=== PATIENT | male | born 1945 | race Caucasian/White ===

== ENCOUNTER 2016-07-15 02:35 | Observation (INO) | payer OTHER ==
[2016-07-15] MEDS ORDERED: NITROGLYCERIN 0.4 MG BTL SL PRN (02:46)
[2016-07-15] MEDS ORDERED: NS 500 ML IV ONE (02:46)
--- NOTE | 2016-07-15 02:46 | CPEKG ---
Heart Rate: 110 RR Interval: 545 QRSD Interval: 108 QT Interval: 368 QTC Interval: 498 QRS [place]: 69 T Wave [place]: -19 EKG Severity - ABNORMAL ECG - EKG Impression: ATRIAL FIBRILLATION, V-RATE 72-163 EKG Impression: VENTRICULAR PREMATURE COMPLEX EKG Impression: INFERIOR INFARCT, AGE INDETERMINATE EKG Impression: BORDERLINE PROLONGED QT INTERVAL Preliminary Awaiting MD Review
[2016-07-15] MEDS ORDERED: ONDANSETRON 4 MG/2 ML VIAL IVP ONE (02:47)
--- NOTE | 2016-07-15 02:51 | EDPHY ---
H & P HPI/ROS: HPI CHIEF COMPLAINT: Chest Pain, STEMI activation by EMS in the field. HISTORY OF PRESENT ILLNESS: This patient is a very pleasant 70-year-old male, significant past medical history for coronary artery disease, hypertension, stroke right-sided deficits, presents emergency room by EMS after around 1:30 a.m. he developed chest pain left-sided woke him from sleep. He is very hard time describing this chest discomfort. States stays in his left chest. 911 was called from his private residence by his for left-sided chest discomfort. EMS arrived and evaluated the patient they felt that he may have had an ST elevation AK and thought they saw ST elevation in V2 V3. No reciprocal changes. Activated a STEMI in the field. Patient was given 2 doses of nitroglycerin EN route. Full-dose aspirin. Chest pain went from 10/10 to 3/ 10. He has had no jaw pain, numbness, tingling, nausea, vomiting, arm pain or weakness. Upon arrival here to the emergency room is brought to ER room 2. Where I immediately evaluated him saw him he had a bedside EKG that does not show ST elevation. Past Medical History: Hypertension, AFib, on Coumadin, coronary artery disease with stent, stroke with right-sided deficit specifically right upper extremity contracture, unable to blink left eye. Past Surgical History: No recent surgery, previous PEG tube Social History: Denies daily use of drugs alcohol tobacco products, at bedside. Family History: Noncontributory ROS REVIEW OF SYSTEMS: A comprehensive 10 point review of systems is otherwise negative aside from elements mentioned in the history of present illness. Exam Constitutional appears well nontoxic, triage nursing summary reviewed, vital signs reviewed, awake/alert. Eyes normal conjunctivae and sclera, EOMI, PERRLA. HENT normal inspection, atraumatic, moist mucus membranes, no epistaxis, neck supple/ no meningismus, no raccoon eyes. Respiratory clear to auscultation bilaterally, normal breath sounds, no respiratory distress, no wheezing. Cardiovascular rate normal, regular rhythm, no murmur, no edema, distal pulses normal. Gastrointestinal soft, non-tender, no rebound, no guarding, normal bowel sounds, no distension, no pulsatile mass. Genitourinary no CVA tenderness. Musculoskeletal no midline vertebral tenderness, full range of motion, no calf swelling, no tenderness of extremities, no meningismus, good pulses, neurovascularly intact. Skin pink, warm, & dry, no rash, skin atraumatic. Neurologic neuro exam is at baseline with right upper extremity contracture, unable to open left eye, awake, alert and oriented x 3, AAOx3, , motor intact, sensory intact, CN II-XII intact, normal cerebellar, normal vision, normal speech. Psychiatric normal mood/affect. Heme/Lymph/Immune no lymphadenopathy. Differential diagnosis includes but is not limited to: ACS, atypical chest pain , pneumothorax, pneumonia, pulmonary embolism, aortic dissection, congestive heart failure, tumor, musculoskeletal pain, esophageal pain, GERD, peptic ulcer disease, pancreatitis Medical Decision Making: The laboratory animal care veterinarian was initially activated for this patient however I cancel the laboratory animal care veterinarian activation and spoke with Dr. Retana with Cardiology. I do not feel that this patient is having an ST elevation AK as his EKG does not indicate that. Will proceed with further cardiac evaluation here in the emergency room. Plan for this patient IV establishment full cardiac catheterization technologist, EKG, 3rd dose of nitroglycerin to see if I can get him chest pain-free, morphine if still has chest pain. Chest x-ray. Artery receive full- dose aspirin. Troponin. Blood work. Re-evaluation: EKG interpretation by me on record in [facility] system. Impression time of EKG 2:39 a.m., this is AFib rate of 110, Q-waves noted in inferior leads. I do not appreciate ST elevation AK on this EKG. No old EKG to compare this to. 0306: I did speak with Cardiology Dr. Retana who reviewed the EKG. Does not feel that this is a STEMI. Will proceed with further cardiac evaluation here in the emergency room. 0315: Re-evaluation at this time. Patient feels better after the 3rd nitroglycerin. Full-dose aspirin was already given by EMS. Initial blood pressure was high however it is improving 150/93 at this time. ED x-ray chest one view: Cardiomegaly present. Lung jacobo clear. Calcified aortic knob. Image interpreted by myself. 0337: Troponin is negative. BNP slightly elevated. Chest x-ray shows cardiomegaly without overt failure. EKG AFib but no acute ischemia. Patient be admitted to the hospital for chest pain evaluation rule out. At this time patient resting comfortably hemodynamically stable. 0429AM: Spoke with Dr. Whitney the hospitalist service agrees to admit this patient. Updated patient and family at bedside. Chest pain-free. Need to be admitted for chest pain evaluation. In the ER troponin negative. Elevated BNP. Chest x-ray shows cardiomegaly but no failure. EKG nonischemic. Therapeutic Coumadin. Source: Patient, Family, EMS Constitutional: Initial Vital Signs Temperature (C) 36.5 C 07/15/16 02:45 Heart Rate 86 07/15/16 02:45 Respiratory Rate 22 H 07/15/16 02:45 Blood Pressure 170/117 H 07/15/16 02:45 O2 Sat (%) 93 07/15/16 02:45 O2 Delivery Mode Nasal Cannula O2 (L/minute) 2 Allergies/Adverse Reactions: No Known Allergies Allergy (Unverified 07/15/16 03:00) Home Medications: Medication Instructions Recorded Flomax 0.4 MG (*) 07/15/16 Jantoven 07/15/16 Losartan Potassium 07/15/16 Metoprolol Tartrate 07/15/16 Warfarin Sodium 07/15/16 Medical Decision Making - Data Points Laboratory Results: Laboratory Results 07/15/16 02:44 07/15/16 02:44 07/15/16 07/15/16 07/15/16 02:44 02:44 02:44 WBC 4.58 10^3/uL 10^3/uL (3.80-9.50) RBC 4.68 10^6/uL 10^6/uL (4.40-6.38) Hgb 14.8 g/dL g/dL (13.7-17.5) Hct 42.8 % % (40.0-51.0) MCV 91.5 fL fL (81.5-99.8) MCH 31.6 pg pg (27.9-34.1) MCHC 34.6 g/dL g/dL (32.4-36.7) RDW 13.2 % % (11.5-15.2) Plt Count 140 10^3/uL L 10^3/uL (150-400) MPV 9.9 fL fL (8.7-11.7) Neut % (Auto) 53.2 % % (39.3-74.2) Lymph % (Auto) 33.6 % % (15.0-45.0) [place] % (Auto) 9.4 % % (4.5-13.0) Eos % (Auto) 2.4 % % (0.6-7.6) Baso % (Auto) 0.7 % % (0.3-1.7) Nucleat RBC Rel Count 0.0 % % (0.0-0.2) Absolute Neuts (auto) 2.44 10^3/uL 10^3/uL (1.70-6.50) Absolute Lymphs (auto) 1.54 10^3/uL 10^3/uL (1.00-3.00) Absolute Monos (auto) 0.43 10^3/uL 10^3/uL (0.30-0.80) Absolute Eos (auto) 0.11 10^3/uL 10^3/uL (0.03-0.40) Absolute Basos (auto) 0.03 10^3/uL 10^3/uL (0.02-0.10) Absolute Nucleated RBC 0.00 10^3/uL 10^3/uL (0-0.01) Immature Gran % 0.7 % % (0.0-1.1) Immature Gran # 0.03 10^3/uL 10^3/uL (0.00-0.10) PT 24.6 SEC H SEC (12.0-15.0) INR 2.20 H (0.83-1.16) APTT 47.7 SEC H SEC (23.0-38.0) Sodium 137 mEq/L mEq/L (134-144) Potassium 4.4 mEq/L mEq/L (3.5-5.2) Chloride 104 mEq/L mEq/L (97-110) Carbon Dioxide 23 mEq/l mEq/l (22-31) Anion Gap 10 mEq/L mEq/L (8-16) BUN 14 mg/dL mg/dL (7-23) Creatinine 0.8 mg/dL mg/dL (0.7-1.3) Estimated GFR > 60 Glucose 88 mg/dL mg/dL (70-100) Calcium 9.3 mg/dL mg/dL (8.5-10.4) Magnesium 2.0 mg/dL mg/dL (1.6-2.3) Total Bilirubin 0.8 mg/dL mg/dL (0.1-1.4) Conjugated Bilirubin 0.4 mg/dL mg/dL (0.0-0.5) Unconjugated Bilirubin 0.4 mg/dL mg/dL (0.0-1.1) AST 37 IU/L IU/L (17-59) ALT 36 IU/L IU/L (21-72) Alkaline Phosphatase 68 IU/L IU/L (38-126) Creatine Kinase 93 IU/L IU/L (0-224) CK-MB (CK-2) Fraction 2.85 ng/mL ng/mL (0-3.19) Troponin I 0.012 ng/mL ng/mL (0-0.034) NT-Pro-B Natriuret Pep 2070 pg/mL H pg/mL (0-125) Total Protein 7.4 g/dL g/dL (6.3-8.2) Albumin 4.2 g/dL g/dL (3.5-5.0) Lipase 154.0 IU/L IU/L (23-300) Medications Given: Discontinued Medications Sodium Chloride (Ns) 500 mls @ 0 mls/hr IV ONCE ONE PRN Reason: As Directed Stop: 07/15/16 02:47 Last Admin: 07/15/16 02:57 Dose: 500 mls Morphine Sulfate (Morphine) 4 mg IVP EDNOW ONE Stop: 07/15/16 02:48 Last Admin: 07/15/16 03:41 Dose: 2 mg Nitroglycerin (Nitrostat) 0.4 mg SL Q5M PRN PRN Reason: Chest Pain Stop: 07/15/16 02:57 Last Admin: 07/15/16 02:58 Dose: 1 tab Ondansetron HCl (Zofran) 4 mg IVP EDNOW ONE Stop: 07/15/16 02:48 Last Admin: 07/15/16 03:40 Dose: 4 mg Departure - Departure Disposition: [facility] Inpatient Acute Clinical Impression: Chest pain Qualifiers: Chest pain type: unspecified Qualified Code(s): R07.9 - Chest pain, unspecified Condition: Fair Referrals: Patient,NotPresent [Unknown] - As per Instructions
[2016-07-15 03:00] LABS: % IMMATURE GRANULYOCYTES 0.7 % (0.0-1.1); ABSOLUTE IMMATURE GRANULOCYTES 0.03 10^3/uL (0.00-0.10); ADD DIFF? NO; ADD MORPH? NO; ADD SCAN? NO; ATYPICAL LYMPHOCYTE FLAG 10 (0-99); FRAGMENT RBC FLAG 0 (0-99); HEMATOCRIT 42.8 % (40.0-51.0); HEMOGLOBIN 14.8 g/dL (13.7-17.5); LEFT SHIFT FLG 0 (0-99); LIPEMIA HEMOLYSIS FLAG 90 (0-99); MEAN CELL HEMOGLOBIN 31.6 pg (27.9-34.1); MEAN CELL HEMOGLOBIN CONCENTR. 34.6 g/dL (32.4-36.7); MEAN CELL VOLUME 91.5 fL (81.5-99.8); MEAN PLATELET VOLUME 9.9 fL (8.7-11.7); PLATELET CLUMPS FLAG 0 (0-99); PLATELET COUNT 140 10^3/uL (150-400); RED BLOOD CELL COUNT 4.68 10^6/uL (4.40-6.38); RED CELL DISTRIBUTION WIDTH 13.2 % (11.5-15.2)
[2016-07-15 03:19] LABS: ALANINE AMINOTRANSFERASE 36 IU/L (21-72); ALBUMIN 4.2 g/dL (3.5-5.0); ALKALINE PHOSPHATASE 68 IU/L (38-126); ANION GAP 10 mEq/L (8-16); ASPARTATE AMINOTRANSFERASE 37 IU/L (17-59); BILIRUBIN,TOTAL 0.8 mg/dL (0.1-1.4); BILIRUBIN-CONJUGATED 0.4 mg/dL (0.0-0.5); BILIRUBIN-UNCONJUGATED 0.4 mg/dL (0.0-1.1); CALCIUM 9.3 mg/dL (8.5-10.4); CARBON DIOXIDE 23 mEq/l (22-31); CHLORIDE 104 mEq/L (97-110); CREATININE 0.8 mg/dL (0.7-1.3); GLOMERULAR FILTRATION RATE > 60; GLUCOSE 88 mg/dL (70-100); POTASSIUM 4.4 mEq/L (3.5-5.2); SODIUM 137 mEq/L (134-144); TOTAL PROTEIN 7.4 g/dL (6.3-8.2)
[2016-07-15 03:24] LABS: INR 2.2 (0.83-1.16); PROTIME(PATIENT) 24.6 SEC (12.0-15.0)
[2016-07-15 03:25] LABS: APTT 47.7 SEC (23.0-38.0)
[2016-07-15 03:34] LABS: CREATINE KINASE-MB FRACTION 2.85 ng/mL (0-3.19); TROPONIN I 0.012 ng/mL (0-0.034)
[2016-07-15] MEDS ORDERED: oxyCODONE IR 5 MG TAB PO PRN (05:14)
[2016-07-15] MEDS ORDERED: ALBUTEROL 3 ML DEYVIAL IH PRN (05:14)
[2016-07-15] MEDS ORDERED: ONDANSETRON 4 MG/2 ML VIAL IVP PRN (05:14)
[2016-07-15] MEDS ORDERED: ACETAMINOPHEN 325 MG TAB PO PRN (05:14)
[2016-07-15] MEDS ORDERED: ONDANSETRON DISINTEGRATING 4 MG TAB PO PRN (05:14)
[2016-07-15] MEDS ORDERED: FUROSEMIDE 40 MG/4 ML VIAL IVP ONE (05:59)
--- NOTE | 2016-07-15 06:30 | CPEKG ---
Heart Rate: 78 RR Interval: 769 QRSD Interval: 100 QT Interval: 396 QTC Interval: 452 QRS [place]: 25 T Wave [place]: -19 EKG Severity - ABNORMAL ECG - EKG Impression: ATRIAL FIBRILLATION, V-RATE 63-95 EKG Impression: PROBABLE INFERIOR INFARCT, AGE INDETERMINATE Electronically Signed By: Adwoa Ron 15-Jul-2016 12:18:59
[2016-07-15] MEDS: TAMSULOSIN HCL 0.4 MG CAP PO SCH (06:31)
--- NOTE | 2016-07-15 07:03 | PDGENHP ---
History and Physical - Chief Complaint chest pain - History of Present Illness Patient is a 70-year-old male with history of CAD, CVA with right hemiparesis , atrial fibrillation on Coumadin, and dm 2 who presents to the ED with complaint of chest pain. Patient states he was awoken from sleep due to acute onset left-sided chest pain. He describes the pain as dull, achy in quality located in his the left side of his chest, nonradiating. Pain was not associated palpitations, nausea, diaphoresis, shortness of breath or dizziness. It did not improve after several minutes, so he woke up his and told her he felt like he was having a heart attack. She then called EMS and he was transported to the ED. EKG on route with EMS was concerning for possible ST elevation, so he was given a full-dose aspirin and 2 sublingual nitroglycerin en route and arrived in the ED as a cardiac alert. On arrival to the ED, patient was afebrile hemodynamically stable. He reported his pain had significantly improved with sublingual nitro. EKG on arrival to the ED did not show evidence of ST elevation, cardiac alert was canceled. EKG did reveal rate controlled afib, no obvious st/twave changes, inferior q waves. Initial labs revealed normal CBC, normal BMP and negative troponin, elevated BNP. Chest x-ray was also unremarkable. He was given an additional SL nitro and admitted to the hospitalist service for further evaluation. 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 Afib on coumadin. CAD s/p PCI x1. DM2 on oral meds only - Surgical History Additional surgical history: PEG tube at time of CVA, since reversed - Family History Additional family history: F: CAD - Social History Smoking Status: Former smoker (quit > 40 years ago) Alcohol Use: None Drug Use: None Additional social history: Patient is retired, lives with his . Walks with a cane, no recent falls. Review of Systems ROS: 10pt was reviewed & negative except for what was stated in HPI & below Physical Exam Temp Pulse Resp BP Pulse Ox 36.6 C 83 18 123/91 H 99 07/15/16 05:54 07/15/16 05:54 07/15/16 05:54 07/15/16 06:39 07/15/16 05:54 O2 (L/minute) 2 Constitutional: no apparent distress, appears nourished, not in pain Eyes: PERRL, anicteric sclera, EOMI Ears, Nose, Mouth, Throat: moist mucous membranes, hearing normal, ears appear normal, no oral mucosal ulcers Cardiovascular: regular rate and rhythym, no murmur, rub, or gallop, No JVD, No edema Peripheral Pulses: 2+: dorsalis-pedis (R), dorsalis-pedis (L) Respiratory: no respiratory distress, no rales or rhonchi, clear to auscultation Gastrointestinal: normoactive bowel sounds, soft, non-tender abdomen, no palpable masses Genitourinary: no bladder fullness, no bladder tenderness Skin: warm, normal color, no rashes or abrasions, no fluctuance, no induration, No mottled Musculoskeletal: no muscle tenderness, normal joint ROM, no joint effusions, other (R upper extremity contracture; R hemiparesis) Neurologic: AAOx3, other (R hemiparesis with more strenght in lower extremity than upper; sensation decreased on R and dysarthria present) Psychiatric: interacting appropriately, not encephalopathic, thought process linear Lab Data & Imaging Review 07/15/16 02:44 07/15/16 02:44 WBC 4.58 10^3/uL (3.80-9.50) 07/15/16 02:44 RBC 4.68 10^6/uL (4.40-6.38) 07/15/16 02:44 Hgb 14.8 g/dL (13.7-17.5) 07/15/16 02:44 Hct 42.8 % (40.0-51.0) 07/15/16 02:44 MCV 91.5 fL (81.5-99.8) 07/15/16 02:44 MCH 31.6 pg (27.9-34.1) 07/15/16 02:44 MCHC 34.6 g/dL (32.4-36.7) 07/15/16 02:44 RDW 13.2 % (11.5-15.2) 07/15/16 02:44 Plt Count 140 10^3/uL (150-400) L 07/15/16 02:44 MPV 9.9 fL (8.7-11.7) 07/15/16 02:44 Neut % (Auto) 53.2 % (39.3-74.2) 07/15/16 02:44 Lymph % (Auto) 33.6 % (15.0-45.0) 07/15/16 02:44 [place] % (Auto) 9.4 % (4.5-13.0) 07/15/16 02:44 Eos % (Auto) 2.4 % (0.6-7.6) 07/15/16 02:44 Baso % (Auto) 0.7 % (0.3-1.7) 07/15/16 02:44 Nucleat RBC Rel Count 0.0 % (0.0-0.2) 07/15/16 02:44 Absolute Neuts (auto) 2.44 10^3/uL (1.70-6.50) 07/15/16 02:44 Absolute Lymphs (auto) 1.54 10^3/uL (1.00-3.00) 07/15/16 02:44 Absolute Monos (auto) 0.43 10^3/uL (0.30-0.80) 07/15/16 02:44 Absolute Eos (auto) 0.11 10^3/uL (0.03-0.40) 07/15/16 02:44 Absolute Basos (auto) 0.03 10^3/uL (0.02-0.10) 07/15/16 02:44 Absolute Nucleated RBC 0.00 10^3/uL (0-0.01) 07/15/16 02:44 Immature Gran % 0.7 % (0.0-1.1) 07/15/16 02:44 Immature Gran # 0.03 10^3/uL (0.00-0.10) 07/15/16 02:44 PT 24.6 SEC (12.0-15.0) H 07/15/16 02:44 INR 2.20 (0.83-1.16) H 07/15/16 02:44 APTT 47.7 SEC (23.0-38.0) H 07/15/16 02:44 Sodium 137 mEq/L (134-144) 07/15/16 02:44 Potassium 4.4 mEq/L (3.5-5.2) 07/15/16 02:44 Chloride 104 mEq/L (97-110) 07/15/16 02:44 Carbon Dioxide 23 mEq/l (22-31) 07/15/16 02:44 Anion Gap 10 mEq/L (8-16) 07/15/16 02:44 BUN 14 mg/dL (7-23) 07/15/16 02:44 Creatinine 0.8 mg/dL (0.7-1.3) 07/15/16 02:44 Estimated GFR > 60 07/15/16 02:44 Glucose 88 mg/dL (70-100) 07/15/16 02:44 Calcium 9.3 mg/dL (8.5-10.4) 07/15/16 02:44 Magnesium 2.0 mg/dL (1.6-2.3) 07/15/16 02:44 Total Bilirubin 0.8 mg/dL (0.1-1.4) 07/15/16 02:44 Conjugated Bilirubin 0.4 mg/dL (0.0-0.5) 07/15/16 02:44 Unconjugated Bilirubin 0.4 mg/dL (0.0-1.1) 07/15/16 02:44 AST 37 IU/L (17-59) 07/15/16 02:44 ALT 36 IU/L (21-72) 07/15/16 02:44 Alkaline Phosphatase 68 IU/L (38-126) 07/15/16 02:44 Creatine Kinase 93 IU/L (0-224) 07/15/16 02:44 CK-MB (CK-2) Fraction 2.85 ng/mL (0-3.19) 07/15/16 02:44 Troponin I 0.012 ng/mL (0-0.034) 07/15/16 02:44 NT-Pro-B Natriuret Pep 2070 pg/mL (0-125) H 07/15/16 02:44 Total Protein 7.4 g/dL (6.3-8.2) 07/15/16 02:44 Albumin 4.2 g/dL (3.5-5.0) 07/15/16 02:44 Lipase 154.0 IU/L (23-300) 07/15/16 02:44 Chest X-Ray results: other (cardiomegaly, no obvious effusions or infiltrate) Visualized and Interpreted EKG results: Yes EKG additional interpertation: afib, inferior q and twi; no other st/t wave changes Assessment & Plan Assessment: Patient is a 70 year old male with CAD s/p PCI in distant past, CVA with R hemiparesis, Afib and DM2 who presents to the ED with complaint of sudden onset L-sided chest pain that woke him from sleep this evening. CP improved with aspirin and SL nitro. Initial ED evaluation reveals nonischemic EKG, negative troponin and elevated BNP. Plan: # chest pain Patient's description of symptoms, as well as his known history of CAD and DM2, are concerning for cardiac etiology. EMS was initially concerned about possible LOLITA on their EKG in the field, however, on inspection it appears more consistent with j-point elevation, rather than true LOLITA. ED EKG does not show LOLITA or depressions. Initial labs show negative troponin, elevated BNP. Differential includes ACS vs acute chf exacerbation vs MSK etiology vs GERD vs PE. Low suspicion for PE given therapeutic INR and no complaint of respiratory symptoms. Will rule out ACS with serial troponins, check TTE, rule out underlying chf, monitor serial EKGs. If work up negative, consider nuclear stress test to further risk stratify. # chronic Afib Patient in rate controlled afib on presentation, with therapeutic INR. Will confirm and continue home med regimen. # DM2 Normal glucose on BMP. Will monitor FS and provide sliding scale coverage. # previous CVA Stable, with chronic R hemiparesis, RUE contracture and mild dysarthria. # dispo: admit to observation for chest pain work up # gen: NPO for possible stress DVT ppx: on coumadin DNR as expressed by patient on admission
[2016-07-15] MEDS: METOPROLOL TARTRATE 5 MG/5 ML INJ IVP SCH ×3 (09:58→12:05)
[2016-07-15] MEDS ORDERED: IBUPROFEN 200 MG TAB PO ONE (10:00)
[2016-07-15 11:35] LABS: CREATINE KINASE-MB FRACTION 2.29 ng/mL (0-3.19); TROPONIN I < 0.012 ng/mL (0-0.034)
--- NOTE | 2016-07-15 11:42 | ECHO ---
[id number] + + [address] : : [place] [address] : : [phone] + + Adult Echocardiographic Report + ------+ :Name: AURE DAVIES TStudy Date: 07/15/2016 08:15 AM BP: 145/97 mmHg : : Hospital Admission Number: [id number] Locatio n: 202: :: 1945 Gender: Male Height: 65 in : :Age: 70 yrs Race: WH Weight: 180 lb : :Reason For Study: chest pain : : BSA: 1.9 meters 2 : :History: CAD, [place], CVA : + ------+ MMode/2D Measurements \T\ Calculations IVSd: 1.1 cm RVDd: 2.6 cm FS: 18.1 % Ao root diam: LVPWd: 0.88 cm LVIDd: 5.5 cm EDV(Teich): 3.3 cm LVIDs: 4.5 cm 146.3 ml LA dimension: ESV(Teich): 4.9 cm 92.0 ml EF(Teich): 37.2 % LVLd ap4: 8.9 cm SV(MOD-sp4): EDV(MOD-sp4): 87.0 ml 169.0 ml LVLs ap4: 8.1 cm ESV(MOD-sp4): 82.0 ml EF(MOD-sp4): 51.5 % Normal Measurement Values: + + :LVIDd (3.5-5.7cm) IVSd (0.6-1.1cm) LVPWd (0.6-1.1cm) Aortic Root (2.0-3.7cm)Left Atrium (1.5-4.0cm): :LV Vol(d) (76-115ml) LV Vol(s) (29-48ml) Ejec Fraction (50-65%)PV Syd (0.6- 1.2m/s) TV Syd (0.4-1.0m/s) : :MV E Syd (0.8-1.0m/s)MV A Syd (0.3-1.0m/s)LVOT Syd (0.7-1.2m/s) Asc Ao Syd ( 0.9-1.8m/s) : + + Doppler Measurements \T\ Calculations MV E max syd: Ao V2 max: LV V1 max: PA V2 max: 110.1 cm/sec 127.6 cm/sec 90.8 cm/sec 55.3 cm/sec MV dec time: 0.15 secAo max P.5 mmHgLV V1 max PG: PA max P.3 mmHg 1.2 mmHg TR max syd: 208.5 cm/sec TR max P.6 mmHg RAP systole: 5.0 mmHg RVSP(TR): 22.6 mmHg Left Ventricle The left ventricle is normal in size. There is mild concentric left ventricular hypertrophy. Left ventricular systolic function is mildly reduced. Ejection Fraction = 50%. Diastolic dysfunction is indeterminate due to atrial fibrillation. Basal inferolateral/septal and basal to mid inferior barreto are hypokinetic. Right Ventricle The right ventricle is normal in size and function. Atria The left atrium is severely dilated. The Left Atrial Volume is 79 ml/m2. The right atrium is mild to moderately dilated. Mitral Valve The mitral valve leaflets appear thickened, but open well. There is no mitral valve stenosis. There is mild to moderate mitral regurgitation. Tricuspid Valve The tricuspid valve is normal in structure and function. There is no tricuspid stenosis. There is mild to moderate tricuspid regurgitation. Right ventricular systolic pressure is 23mmHg. Aortic Valve The aortic valve is trileaflet. There is no aortic stenosis. There is no aortic insufficiency. Pulmonic Valve The pulmonic valve is not well visualized. Great Vessels The aortic root is normal size. Pericardium/Pleural trivial pericardial effusion. Conclusion A two-dimensional transthoracic echocardiogram with M-mode and Doppler was performed. There is mild concentric left ventricular hypertrophy. Left ventricular systolic function is mildly reduced. Ejection Fraction = 50%. Basal inferolateral/septal and basal to mid inferior barreto are hypokinetic. The left atrium is severely dilated. The Left Atrial Volume is 79 ml/m2. The right atrium is mild to moderately dilated. There is mild to moderate mitral regurgitation. There is mild to moderate tricuspid regurgitation. Right ventricular systolic pressure is 23mmHg. trivial pericardial effusion. Final Reading Physician: Esperanza Gandhi signed on 07/15/2016 11:40 AM Ordering Physician: Yvette De La Rosa Performed By: Darleen Patel
--- NOTE | 2016-07-15 12:00 | GCON ---
[f rep st] CONSULTATION CARDIAC CONSULTATION DATE OF CONSULTATION: 07/15/2016 CHIEF COMPLAINT: Chest pain. HISTORY OF PRESENT ILLNESS: This is a 70-year-old gentleman who is followed by [facility]. He has a hi story of coronary artery disease 12 years ago with stenting. He has a history of CVA with right hem iparesis. He has a history of atrial fibrillation on chronic Coumadin. He has a history of diabete s mellitus. He has been on chronic stable medications. He has not had stress testing in a number o f years. Last week he started a new exercise program. This morning he woke up with left upper shou lder chest pain. -- was called. Initially a cardiac alert was initiated; however, it appeared t hat he did not have ST elevation. It was more J-point. In the emergency room, his troponins were n ormal. His BNP was slightly elevated. He is now seen in his room with very minimal left shoulder-t ype pain. No shortness of breath or other issues. His atrial fibrillation has been somewhat variab le. Heart rates between 90 and 140 with exertion. He is going to have extra metoprolol given. In speaking to him, he has been doing well without any shortness of breath, chest pain, or other issues up until today. MEDICATIONS: His home medicines include Flomax, Jantoven, losartan, metoprolol. PAST MEDICAL HISTORY: CVA, atrial fibrillation, coronary artery disease. REVIEW OF SYSTEMS: No fever, chills, nausea, vomiting, GI or blood loss. SOCIAL HISTORY: He lives with his , who is here and helps answer questions. He is active and u ses a cane occasionally but does exercise and seems to be doing fairly well. PHYSICAL EXAMINATION: VITAL SIGNS: Blood pressure is 120/90. Heart rates in AFib between 90 and 1 41. GENERAL: He is active. He is generally in no acute distress except for some mild point tender ness in his left shoulder at this time. He is alert and oriented x3. He has right hemiparesis, whi ch is old. LUNGS: Clear. CARDIOVASCULAR: Regular rate and rhythm without murmur, gallops, or rub . ABDOMEN: Soft. Nontender. MOUTH: Oropharynx was moist. MUSCULOSKELETAL: Showed no cyanosis, clubbing, or edema. LABORATORY DATA: EKG shows atrial fibrillation without any acute ST-T wave changes. His white coun t was 4.5, hemoglobin 13. INR 2.2. Creatinine 0.8. CK normal. Troponin 0.01. BNP 2070. IMAGING DATA: Chest x-ray: No cardiac decompensation or atherosclerotic cardiovascular disease. ASSESSMENT: 1. Chest pain. Originally thought to be cardiac, although at this point enzymes and EKG are normal . It very well may be musculoskeletal given his recent increase work out, especially with his upper extremities as confirmed by his . He has been on chronic stable medications. Has not had any recent exercise stress test or cardiac instability, per their report. He is comfortable and stable at this time with atypical shoulder pain right now without shortness of breath or other issues. We reviewed his medications, which are chronic and stable. He is not on statin drug by his choice. Pl an: Continue rule out myocardial infarction. If negative, would progress with a Lexiscan stress te st. 2. Atrial fibrillation. Patient is chronic on Coumadin and metoprolol. Now he is having some high er heart rates. Will increase metoprolol as indicated. 3. Cerebrovascular accident. Stable with a therapeutic INR. 4. Apparently adult-onset diabetes mellitus, not on any medicines. At this point, case discussed w radha Hairston and the patient and his . Questions were answered. He appears comfortable an d stable. /[id number]/MODL
--- NOTE | 2016-07-15 13:57 | HOSPPROG ---
Hospitalist Progress Note Assessment/Plan: 70 yo M with PMH of CAD, a fib and cva with residual right sided hemiparesis pw chest pain and a fib w/rvr # chest pain: by history sounds atypical and has improved, though still present overnight. Query if msk in nature, is reproducible on exam and was preceded by increased exercise. Appreciate cardiology input, plan to continue to cycle trops , monitor on tele. Will get nuc stress if rules out for ACS # chronic a fib w/rvr: patient presenting with rates in 140s on his usual medications of metoprolol and coumadin. Gave additional doses of metop IVP and rate improved. As above, cardiology following. Echo without acute change. INR therapeutic. # DM2: not on any hypoglycemic agents at home and glucose here so far < 100, perhaps has been controlled with diet, monitoring # cva: with residual right sided weakness, in setting of chronic a fib, continue warfarin # dispo: observation status Reviewed care plan with cardiology, old records reviewed and summarized as above. Further hx obtained from patients present at bedside. Subjective: no significant overnight events, patient still having mild chest pain across his left anterior chest but improved from prior Objective: Vital Signs Temp Pulse Resp BP Pulse Ox 36.8 C 72 10 L 113/86 H 96 07/15/16 12:29 07/15/16 12:29 07/15/16 12:29 07/15/16 12:29 07/15/16 12:29 07/14/16 07/15/16 07/16/16 05:59 05:59 05:59 Intake Total 600 250 Output Total 800 750 Balance -200 -500 PT 24.6 SEC (12.0-15.0) H 07/15/16 02:44 INR 2.20 (0.83-1.16) H 07/15/16 02:44 ICD10 Worksheet Patient Problems: Problems Problem Status Onset Chest pain Acute
[2016-07-15] MEDS ORDERED: WARFARIN SODIUM 2 MG TAB PO SCH (18:00)
[2016-07-15] MEDS ORDERED: LOSARTAN POTASSIUM 50 MG TAB PO SCH (18:00)
[2016-07-15] MEDS ORDERED: LOSARTAN POTASSIUM 25 MG TAB PO SCH (18:00)
[2016-07-15] MEDS: MULTIVITAMINS 1 EACH TAB PO SCH (20:27)
[2016-07-15] MEDS: METOPROLOL TARTRATE 25 MG TAB PO SCH (20:31)
[2016-07-15] MEDS ORDERED: FLOMAX 0.4 MG PO SCH (21:00)
[2016-07-15] MEDS ORDERED: METOPROLOL TARTRATE 50 MG TAB PO SCH (21:00)
[2016-07-15] MEDS ORDERED: TAMSULOSIN HCL 0.4 MG CAP PO SCH (21:00)
[2016-07-16 07:54] LABS: % IMMATURE GRANULYOCYTES 0.5 % (0.0-1.1); ABSOLUTE IMMATURE GRANULOCYTES 0.02 10^3/uL (0.00-0.10); ADD DIFF? NO; ADD MORPH? NO; ADD SCAN? NO; ATYPICAL LYMPHOCYTE FLAG 10 (0-99); FRAGMENT RBC FLAG 30 (0-99); HEMATOCRIT 41.2 % (40.0-51.0); HEMOGLOBIN 14.2 g/dL (13.7-17.5); LEFT SHIFT FLG 0 (0-99); LIPEMIA HEMOLYSIS FLAG 90 (0-99); MEAN CELL HEMOGLOBIN 31.4 pg (27.9-34.1); MEAN CELL HEMOGLOBIN CONCENTR. 34.5 g/dL (32.4-36.7); MEAN CELL VOLUME 91.2 fL (81.5-99.8); MEAN PLATELET VOLUME 10.1 fL (8.7-11.7); PLATELET CLUMPS FLAG 20 (0-99); PLATELET COUNT 147 10^3/uL (150-400); RED BLOOD CELL COUNT 4.52 10^6/uL (4.40-6.38); RED CELL DISTRIBUTION WIDTH 13.2 % (11.5-15.2)
[2016-07-16 07:58] LABS: INR 2.23 (0.83-1.16); PROTIME(PATIENT) 24.9 SEC (12.0-15.0)
[2016-07-16 08:13] LABS: ANION GAP 8 mEq/L (8-16); CALCIUM 8.9 mg/dL (8.5-10.4); CARBON DIOXIDE 23 mEq/l (22-31); CHLORIDE 108 mEq/L (97-110); CREATININE 0.8 mg/dL (0.7-1.3); GLOMERULAR FILTRATION RATE > 60; GLUCOSE 81 mg/dL (70-100); POTASSIUM 4.3 mEq/L (3.5-5.2); SODIUM 139 mEq/L (134-144)
[2016-07-16] MEDS: TAMSULOSIN HCL 0.4 MG CAP PO SCH (08:39)
[2016-07-16] MEDS: MULTIVITAMINS 1 EACH TAB PO SCH (08:40)
[2016-07-16] MEDS: METOPROLOL TARTRATE 25 MG TAB PO SCH (08:40)
[2016-07-16] MEDS ORDERED: PRESERVISION AREDS2 FORMULA EYE VIT 1 EACH PO SCH (09:00)
[2016-07-16] MEDS ORDERED: CHOLECALCIFEROL VIT D3 1,000 UNITS TAB PO SCH (09:00)
[2016-07-16] MEDS ORDERED: NON-FORMULARY NEW DRUG (Beta-Carotene(A) W-C & E/Min [Ocuvite] 1 TAB) PO SCH (09:00)
[2016-07-16] MEDS ORDERED: ASCORBIC ACID 500 MG TAB PO SCH (09:00)
[2016-07-16] MEDS ORDERED: ASPIRIN EC 81 MG TAB PO SCH (09:00)
--- NOTE | 2016-07-16 09:07 | PDCARPN ---
Cardiology Progress Note Chief Complaint: CHEST PAIN Assessment/Plan: Assessment: 1. Chest pain, prior history of myocardial infarction status post stenting 12 years ago 2. remote history of cerebrovascular accident 3. atrial fibrillation 4. Hypertension Plan: 1. Has ruled out for myocardial infarction. Should have Lexiscan Cardiolite stress test at [place] as an outpatient. He sees Dr. Sandoval who he should follow up with. 2. Is therapeutic on warfarin, this should be continued for life 3. Elevated BNP with pedal edema. Start low-dose Lasix. 4. For elevated heart rates during atrial fibrillation and hypertension, will increase metoprolol to 37.5 mg twice daily. 5. okay to discharge home from the cardiac standpoint. 6. d.c. all supplements 07/16/16 09:03 Subjective: Does not report any chest pain or shortness of breath today. is in the room with him. Has a lot of questions about the various supplements that he takes. Reviewed/Discussed With: family Time Spent With Patient: 15 minutes Objective: Intake/Output (24 Hrs) 07/14/16 07/15/16 07/16/16 11:59 11:59 11:59 Intake Total 600 500 Output Total 1550 Balance -950 500 Intake: Oral (ml) 100 500 IV Infused (ml) 500 Output: Urine (ml) 1550 Urinal 750 Other: Weight 84.4 kg Number of Voids Toilet 1 1 Urinal 1 Result Diagrams: 07/16/16 03:17 07/15/16 02:44 Cardiac Labs: Cardiac Lab Results (72 Hrs) 07/15/16 10:41 CK-MB (CK-2) Fraction 2.29 Troponin I < 0.012 Telemetry: reviewed, atrial fibrillation with rapid ventricular response Echocardiogram: left ventricular ejection fraction 50%, inferior hypokinesis, [id number] MR, [id number] TR, normal estimated RV systolic pressure, biatrial enlargement. - Physical Exam Constitutional: no apparent distress Eyes: PERRL, EOMI Ears, Nose, Mouth, Throat: moist mucous membranes Cardiovascular: irregularly irregular Respiratory: clear to auscultate bilat Psychiatric: cooperative, following commands, not anxious ICD10 Worksheet Patient Problems: Problems Problem Status Onset Chest pain Acute
--- NOTE | 2016-07-16 09:19 | PDDCSUM ---
Discharge Summary Discharge Summary: Dates of service 07/15-07/16/16 Consultations: cardiology Procedures performed: echo Hospital course by problem: # chest pain: by history sounds atypical and has improved, has ruled out for ACS with serial trops and tele monitoring. Plan is for outpatient stress test through [facility]. Appreciate cardiology consultation. # chronic a fib w/rvr: patient presenting with rates in 140s on his usual medications of metoprolol and coumadin. Cardiology consulted, plan to dc on increased dose of metoprolol, continued on coumadin which was therapeutic. # DM2: not on any hypoglycemic agents at home and glucose here so far < 100, perhaps has been controlled with diet, monitoring # cva: with residual right sided weakness, in setting of chronic a fib, continue warfarin Dispo: dc home, f/u with pcp/cards at [facility], op stress test scheduled Meds: see EHR >35 minutes spent in dc, more than half in coordination of care
[2016-07-16] MEDS ORDERED: FUROSEMIDE 20 MG TAB PO SCH (09:45)
[2016-07-16 09:46] VITALS: BP 135/94; PULSE 90; RESP 16; TEMP 97.6; O2SAT 91
[2016-07-16] MEDS ORDERED: METOPROLOL TARTRATE 25 MG TAB PO SCH (21:00)
== END 2016-07-16 11:57 | disposition home or self-care (01) ==
LOC: EDUNIT# → INTOOBSV 04:28 → F2W 05:29
PROVIDERS: ADMIT Internal Medicine; ATTEND Internal Medicine
DX: R07.9 Chest pain, unspecified (principal); I25.10 Atherosclerotic heart disease of native coronary artery without angina pectoris; I10 Essential (primary) hypertension; I69.351 Hemiplegia and hemiparesis following cerebral infarction affecting right dominant side; I69.322 Dysarthria following cerebral infarction; I69.392 Facial weakness following cerebral infarction; E11.9 Type 2 diabetes mellitus without complications; I48.2 Chronic atrial fibrillation; Z79.01 Long term (current) use of anticoagulants; Z95.5 Presence of coronary angioplasty implant and graft
CPT/HCPCS: 71010; 93005; 93306; 97166; G0378; J2405; 96374; J1940